=== PATIENT | female | born 1980 | race Caucasian/White ===

== ENCOUNTER 2018-10-06 08:01 | Day surgery (SDC) | payer MEDICAID, OTHER ==
[2018-10-05 10:51] LABS: APPEARANCE,URINE CLOUDY; BILIRUBIN,URINE NEGATIVE (NEGATIVE); COLOR,URINE YELLOW; GLUCOSE, URINE NEGATIVE (NEGATIVE); KETONES,URINE NEGATIVE (NEGATIVE); LEUKOCYTE ESTERASE,URINE LARGE (NEGATIVE); NITRITE,URINE NEGATIVE (NEGATIVE); PROTEIN,URINE NEGATIVE (NEGATIVE); URINE SPECIFIC GRAVITY 1.008; UROBILINOGEN,URINE NEGATIVE mg/dL (<2.0)
--- NOTE | 2018-10-05 11:36 | RADIOLOGY REPORT (SQ) ---
EXAM DESCRIPTION: CHEST PA/LATERAL COMPLETED DATE/TIME: 10/05/2018 10:40 am REASON FOR STUDY: PRE-OP COMPARISON: None. EXAM PARAMETERS: NUMBER OF VIEWS: two views TECHNIQUE: Digital Frontal and Lateral radiographic views of the chest acquired. RADIATION DOSE: NA LIMITATIONS: none FINDINGS: LUNGS AND PLEURA: No opacities, masses or pneumothorax. No pleural effusion. MEDIASTINUM AND HILAR STRUCTURES: No masses or contour abnormalities. HEART AND VASCULAR STRUCTURES: Heart normal size. No evidence for failure. BONES: No acute findings. HARDWARE: None in the chest. OTHER: No other significant finding. IMPRESSION: NO SIGNIFICANT RADIOGRAPHIC FINDING IN THE CHEST. TECHNICAL DOCUMENTATION: JOB ID: [id number] [employer]- All Rights Reserved Reading location - IP/workstation name: [email or web address]
[2018-10-05 11:45] LABS: HEMATOCRIT 37.7 % (36.0-47.0); MEAN CORPUSCULAR HEMOGLOBIN 29.2 pg (27.0-33.4); MEAN CORPUSCULAR HGB CONC 34.4 g/dL (32.0-36.0); MEAN CORPUSCULAR VOLUME 85 fl (80-97); PLATELET COUNT 241 10^3/uL (150-450); RED BLOOD COUNT 4.43 10^6/uL (3.72-5.28); RED CELL DISTRIBUTION WIDTH 12.6 % (11.5-14.0); WHITE BLOOD COUNT 7.2 10^3/uL (4.0-10.5)
[2018-10-05 12:34] LABS: ALANINE AMINOTRANSFERASE 22 U/L (9-52); ALBUMIN 4.6 g/dL (3.5-5.0); ALKALINE PHOSPHATASE 47 U/L (38-126); ANION GAP 9 (5-19); ASPARTATE AMINO TRANSFERASE 14 U/L (14-36); BILIRUBIN,DIRECT 0.2 mg/dL (0.0-0.4); BILIRUBIN,TOTAL 0.4 mg/dL (0.2-1.3); BLOOD UREA NITROGEN 8 mg/dL (7-20); CALCIUM 9.9 mg/dL (8.4-10.2); CARBON DIOXIDE 27 mmol/L (22-30); CHLORIDE 104 mmol/L (98-107); GLUCOSE 88 mg/dL (75-110); POTASSIUM 4.5 mmol/L (3.6-5.0); SODIUM 140.2 mmol/L (137-145); TOTAL PROTEIN 6.9 g/dL (6.3-8.2)
--- NOTE | 2018-10-05 23:16 | EKG REPORT ---
SEVERITY:- BORDERLINE ECG - SINUS RHYTHM BORDERLINE T ABNORMALITIES, ANTERIOR LEADS : Confirmed by: George Hill 05-Oct-2018 23:16:11
[~2018-10-06 08:01] MED LIST: CEFAZOLIN 1 GM/D5W RTU 1 GM/50 ML RTUPB IV PRN; LACTATED RINGERS 1000 ML IV PRN; LIDOCAINE 0.5% INJ-PF (5 MG/ML) 50 ML SDV SUBCUT PRN
[2018-10-06] MEDS ORDERED: BUPIVACAINE HCL 0.25 % INJ/PF (2.5 MG/1 ML) 30 ML VIAL ONE (08:07)
[2018-10-06] MEDS ORDERED: CEFAZOLIN 1 GM/D5W RTU 1 GM/50 ML RTUPB IV ONE (08:08)
[2018-10-06] MEDS ORDERED: FENTANYL CITRATE INJ/PF 250 MCG/5 ML AMPULE ONE (09:40)
[2018-10-06] MEDS ORDERED: PROPOFOL INJ 200 MG/20 ML VIAL IV ONE (09:40)
[2018-10-06] MEDS ORDERED: MIDAZOLAM 2 MG/2 ML INJ ONE (09:40)
[2018-10-06] MEDS ORDERED: HYDROMORPHONE HCL INJ/PF 2 MG/ML AMPULE ONE ×2 (09:40→11:53)
[2018-10-06] MEDS ORDERED: FENTANYL CITRATE INJ/PF 100 MCG/2 ML AMPUL IV PRN ×3 (10:35)
[2018-10-06] MEDS ORDERED: PROMETHAZINE HCL INJ 25 MG/1 ML VIAL IV PRN (10:35)
[2018-10-06] MEDS ORDERED: MEPERIDINE HCL/PF INJ 25 MG/1 ML DISP.SYRIN IV PRN (10:35)
[2018-10-06] MEDS ORDERED: DIPHENHYDRAMINE HCL 50 MG/ML VIAL IV PRN (10:35)
[2018-10-06] MEDS ORDERED: MORPHINE SULFATE 10 MG/ML INJ IV PRN (10:35)
[2018-10-06] MEDS: FENTANYL CITRATE INJ/PF 100 MCG/2 ML AMPUL ONE ×2 (11:32→11:37)
--- NOTE | 2018-10-06 11:39 | OPERATIVE REPORT E ---
Operative Report NAME: KIRAN VICTORIA : 1980 AGE: 38Y DATE OF SURGERY: 10/06/2018 ROOM: PREOPERATIVE DIAGNOSIS: DYSMENORRHEA. POSTOPERATIVE DIAGNOSIS: DYSMENORRHEA. OPERATION: Total hysterectomy and bilateral salpingectomy with robot assistance. SURGEON: Brian BHANDARI M.D. ANESTHESIA: General. ESTIMATED BLOOD LOSS: Less than 25 mL TISSUE REMOVED OR ALTERED: Uterus and tubes. PROCEDURE: The patient was placed in the dorsal lithotomy position, prepped and draped in usual sterile fashion. A speculum was placed. The cervix visualized and grasped with a single-toothed tenaculum, sounded to a depth of 8 cm. The uterine manipulator was placed per protocol. We then turned to the abdomen, where a supraumbilical incision was made. Trocars were additionally placed in the abdomen. Introduction of the laparoscope. Visualization of the pelvis, which appeared to be normal, with no adhesions noted. A second puncture was made lateral to the first one on the left and a 5 was introduced, and a third on the right with a 5 introduced, and an accessory port in the suprailiac crest. The robot was docked in the usual fashion. Used monopolar and bipolar cautery. The right tube is identified and divided along the medial salpinx. The utero-ovarian ligament was then divided with sharp dissection. This was continued down to the level of the uterine artery on the right. The procedure repeated on the left. The bladder flap was created with sharp dissection. The uterus then removed by making a circumferential incision around the cuff. The cuff was then closed with a running suture of 0 Vicryl. The pelvis was irrigated with normal saline and hemostasis was noted. The robot was undocked and the deflated trocar sleeves removed. The incisions closed with 4-0 Vicryl. The patient's urine remained clear throughout the procedure and she was taken to recovery room in good condition. DICTATING PHYSICIAN: Brian BHANDARI M.D. [id number] PHY#: [id number] ID: [id number] JOB#: [id number] ACCT: [id number] cc:Brian BHANDARI M.D. >
[2018-10-06] MEDS ORDERED: KETOROLAC TROMETHAMINE INJ/PF 30 MG/1 ML SDV ONE (11:40)
[2018-10-06] MEDS ORDERED: MORPHINE SULFATE 10 MG/ML INJ IM PRN (11:46)
[2018-10-06] MEDS ORDERED: OXYCODONE-ACETAMINOPHEN 5-325 MG TABLET PO PRN (11:46)
[2018-10-06] MEDS ORDERED: ONDANSETRON 4 MG TAB.RAPDIS PO PRN (11:46)
[2018-10-06] MEDS ORDERED: ONDANSETRON HCL INJ/PF 4 MG/2 ML SDV ONE (12:15)
[2018-10-06] MEDS ORDERED: NEOSTIGMINE METHYLSULFATE 10 MG/10 ML VIAL ONE (12:15)
[2018-10-06] MEDS ORDERED: ROCURONIUM BROMIDE INJ 50 MG/5 ML VIAL IV ONE (12:15)
[2018-10-06] MEDS ORDERED: GLYCOPYRROLATE 1 MG/5 ML VIAL ONE (12:15)
[2018-10-06] MEDS ORDERED: IBUPROFEN 800 MG TABLET PO SCH (14:00)
[2018-10-06 16:41] VITALS: BP 132/73
== END 2018-10-06 17:00 | disposition home or self-care (01) ==
LOC: OROUT 08:01 → 2N 12:20 → OROUT 17:00
PROVIDERS: ATTEND Obstetrics & Gynecology Gynecology
DX: N94.6 Dysmenorrhea, unspecified (principal); N92.0 Excessive and frequent menstruation with regular cycle; N80.0 Endometriosis of uterus; D25.9 Leiomyoma of uterus, unspecified; F17.210 Nicotine dependence, cigarettes, uncomplicated
CPT/HCPCS: 58571; S2900; 36415; 71046; 80053; 81001; 81025; 840; 85027; 86850; 86900; 86901; 88307; 93005; 93010; J0690; J1170; J1885; J2250; J2405; J2704; J2710; J3010; J3490